=== PATIENT | female | born 1940 | race Caucasian/White ===

== ENCOUNTER → 2021-03-14 | Outpatient (CLI) | payer MEDICARE ==
[~2021-03-14] MED LIST: CALC1TAB30 PO; CLON0.1D3 TD; CYCLO25CA PO; MYCO250C PO; POTA1TAB14 PO; PRAV20TA2 PO; WARF-58 PO; [UNRECOGNIZED DRUG - OTHER]; [UNRECOGNIZED DRUG - OTHER]; [UNRECOGNIZED DRUG - OTHER]
--- NOTE | 2021-03-15 09:10 | RADONC.CN ---
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 She was offered catheter directed intervention at [facility] but has declined Y90 or like, in favor of EBRT. Diagnosis/Treatment History Oncologic History History of pulmonary carcinoid s/p LLL lobectomy in 2000. OHT @ [facility] 2000 on mycophenolate, cyclosporine, coumadin Cholangiocarcinoma Presented in September 2020 after a fall at home which prompted a RUQ US showing abnormality in the left liver. 12/25/20 CT abdomen pelvis showed an 8 cm mass in segment 2 01/24/21 MRI abdomen with 8.5 cm segment 2 mass, 2 cm segment 4 mass, and 1 cm elzbieta hepatis node 01/28/21 Biopsy consistent with cholangiocarcinoma [id number] stage IIIB 02/12/[address] Mackenzie @ [facility], options explained for management SIRT, TACE, chemo, observation, EBRT Interval History Here with her , reports that she has some band-like abdominal pain, and mild nausea without vomiting, which is almost daily. She has some reduced appetite, notes that she has some abdominal swelling. No confusion, no CP or SOB. She has no BRBPR, no bowel or urinary complaints. Past Medical History: DM OHT PE 2020 on coumadin Past Surgical History: PCI 01/28/21 Pelvic fractures 09/2020 Family History: Breast cancer sister Social History: Never smoker Never drinker Allergies / Meds Allergies: Coded Allergies: MS - No Known Drug Allergy (Verified Allergy, Unknown, 07/18/15) Home Meds Reported Medications Cyclosporine (Modified) (Neoral) 25 Mg Capsule, 25 MG PO BID for 30 Days, #180 CAP 03/14/21 Review of Systems Constitutional: Reports: Fatigue; Denies: Fever, Weight Loss Eyes: Denies: Pain HEENT: Denies: Head Aches Skin: Denies: Rash, Lesions, Jaundice Pulmonary: Denies: Dyspnea, Cough Cardiovascular: Denies: Chest Pain Gastrointestinal: Reports: Abdominal Pain; Denies: Nausea, Vomiting, Melena, Hematochezia Genitourinary: Denies: Hematuria Hematologic: Reports: Bruising, Petecchia Endocrine: Denies: Cold Intolerance Musculoskeletal: Denies: Neck pain, Back pain Neurological: Denies: Weakness, Numbness, Incoordination, Confusion Psych: Reports: Mood Normal Vital Signs Ht 58" Wt 134 lbs BMI 28 T 97 P 98 RR 18 BP 147/111 O2 100% Pain 0 Fatigue 2 General Exam: Alert, Cooperative, No Acute Distress Eye Exam: PERRLA, Conjunctiva & lids normal, EOMI; Negative: Sclera icteric ENT EXAM: Atraumatic, Mucous membr. moist/pink; Negative: Other ENT (No sublingual jaundice) Chest Exam: Clear to auscultation, Normal air movement Heart Exam: Rate Normal, Regular Rhythm Abdomen Exam: Normal bowel sounds, Soft, Tenderness (There is RUQ tenderness without guarding, liver edge palpable below the costal margin. No mass) Extremity Exam: Edema (Pedal edema ) Skin Exam: Nl turgor and temperature, Lesion (There are some scattered petec hiae on the wrists and dorsal hands BL. None on feet) Neuro Exam: Normal Gait, Normal Speech, Cranial Nerves 3-12 NL; Negative: Other (No asterixis) Psych Exam: Mental status NL Diagnostic and Laboratory Diagnostic Review Radiologic images, relevant labs and pathology reports were personally reviewed and discussed with Ms. Bowen. Assessment and Plan Impression Ms. 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 She was offered catheter directed intervention at [facility] but has declined Y90 or like, in favor of EBRT. Stage Intrahepatic bile duct (cholangiocarcinoma) [id number] stage IIIB Performance Status ECOG 1 Plan We had an extensive discussion with Ms. Bowen regarding the diagnosis at hand and available therapeutic options. She has declined any invasive management options at this time. I think this is reasonable. Y90 or like intervention can be held in reserve in case of pro gression after EBRT. No single modality (outside of resection or transplant, which she is not eligible for) has been shown superior for controlling intrahepatic tumors such as this. I reviewed her imaging with her which shows a multifocal tumor, which can be safely encompassed as a single isocenter treatment. Thankfully the bulk of the tumor is in the left hepatic lobe, which will make it easier to spare normal liver dose, as well as bowel dose. If feasible I will also include the suspicious elzbieta hepatis node in the field. For dose/fractionation, I favor 10 fractions of hypofractionated RT with stereotactic techniques. 50-60 Gy is my target dose. With a high gradient outside tumor this will spare normal tissue toxicity compared to standard SBRT liver doses, for tumor control the BED of the proposed regimen is similar to 10 Gy x 5. Depending on target geometry, we may use a hybrid of DCA and VMAT arcs for treatment. We discussed the logistics of receiving radiation therapy in detail including the need for a 1-time planning session. I will attempt expiration breath hold, but if this is not tolerated then we will perform a 4D limited CT and use an ITV approach. I will use her MRI to inform the target volumes, the lesions in question should be visible on the planning CT as well, as they are hypodense. If needed additional imaging can be obtained an fused. I will repeat her bloodwork today; CEA, CA19-9, CBC, CMP, PT/INR. In particular her CEA was elevated and could be followed after treatment. For imaging after treatment alternating MRI and CTs of the body could be obtained. For side effects we discussed the expectation she will experience nausea, possible diarrhea, fatigue, and late necrosis. After discussing the risks, benefits and alternatives to radiation therapy, Ms. Bowen was amenable to pursuing radiotherapy. All questions were answered to the patient's satisfaction. We instructed the patient that if there were any questions,concerns or changes in clinical status in the interim to contact us. Recommendations Hypofractionated RT 50-60 Gy in 10 fractions Simulation 4D v expiration breath hold Repeat labs today Billing Statement Total time of [50] minutes was spent preparing for the visit [4], obtaining HPI [10], examining the patient [4], reviewing diagnostic tests [7], discussing management options [15], coordinating care [2], and writing this note [8]. PAYAM COX MD Mar 15, 2021 09:10
== END ==
LOC: M ONCR 14:45
PROVIDERS: ATTEND General Practice
DX: C22.1 Intrahepatic bile duct carcinoma (principal); R10.9 Unspecified abdominal pain; R11.0 Nausea; Z79.01 Long term (current) use of anticoagulants; Z85.118 Personal history of other malignant neoplasm of bronchus and lung; Z92.25 Personal history of immunosuppression therapy; Z94.1 Heart transplant status

== ENCOUNTER 2021-04-26 11:05 | Outpatient (RCR) | payer MEDICARE ==
[~2021-04-26 11:05] MED LIST changes: +ONDA-83 PO
== END 2021-04-28 ==
LOC: M ONCR 11:05
PROVIDERS: ATTEND General Practice
DX: C22.1 Intrahepatic bile duct carcinoma (principal); R11.0 Nausea

== ENCOUNTER 2021-05-06 12:47 | Outpatient (RCR) | payer MEDICARE ==
[2021-06-05] MEDS ORDERED: DECA4TAB PO (14:01)
[2021-08-02] MEDS ORDERED: ONDA-83 PO (15:26)
== END 2021-05-28 ==
LOC: M ONCR 12:47
PROVIDERS: ATTEND General Practice
DX: C22.1 Intrahepatic bile duct carcinoma (principal); R53.83 Other fatigue

== ENCOUNTER → 2021-06-05 | Outpatient (CLI) | payer MEDICARE ==
[~2021-06-05] MED LIST changes: +DECA4TAB PO
--- NOTE | 2021-06-05 14:05 | RADENCPD ---
Date/Time of Encounter Date of Encounter: Jun 05, 2021 Time of Encounter: 14:01 Encounter Joseline came in today due to a history of nausea, abdominal bloating and early satiety for the past 2 weeks. Briefly, she completed RT to her large multifocal cholangiocarcinoma ~ 1 month ago. She is still eating and only has had vomiting once. She has been quite fatigued compared to her baseline as well. On exam she has no significant increase in abdominal girth, she has some mild RUQ and epigastric tenderness. She has no sublingual or conjunctival jaundice. She has no asterixis or swelling in her extremities. I explained that fatigue and some RUQ pain is typical of inflammation following RT to the liver. As she is eating without significant vomiting I encouraged her to take bland PO and ensure 4x daily, if able. Continue the zofran TID, can increase to 2 tabs TID if necessary, and I will prescribe a pulse of decadron 4 mg BID for 7 days. We will also get CMP, amylase, lipase, CBC today. I will call her back in weeks to assess her progress. She may call sooner if needed. PAYAM COX MD Jun 05, 2021 14:05
[2021-06-05 14:26] LABS: BASO % 0.6 % (0.0-1.0); EOS % 0.3 % (0.0-3.0); HEMOGLOBIN 11.4 g/dl (12.0-15.5); LYMPH # 0.5 10^3/uL (1.5-5.0); LYMPH % 16.3 % (24.0-44.0); MEAN CORPUSCULAR HEMOGLOBIN 32.4 pg (27.0-33.0); MEAN CORPUSCULAR HGB CONC 33.5 g/dl (32.0-36.5); MEAN CORPUSCULAR VOLUME 96.6 fl (80.0-96.0); MONO # 0.6 10^3/uL (0.0-0.8); MONO % 16.9 % (2.0-8.0); NEUTROPHILS # 2.2 10^3/uL (1.5-8.5); NEUTROPHILS % 65.6 % (36.0-66.0); PLATELET COUNT, AUTOMATED 143 10^3/uL (150-450); RED BLOOD COUNT 3.52 10^6/uL (4.00-5.40); WHITE BLOOD COUNT 3.3 10^3/uL (4.0-10.0)
[2021-06-05 14:37] LABS: INR 2.18; PROTHROMBIN TIME 24.7 SECONDS (12.7-14.5)
[2021-06-05 15:17] LABS: ALBUMIN 3.1 GM/DL (3.2-5.2); BILIRUBIN,TOTAL 0.7 MG/DL (0.2-1.0); CALCIUM LEVEL 8.6 MG/DL (8.8-10.2); CREATININE FOR GFR 1.1 MG/DL (0.55-1.30); GLOMERULAR FILTRATION RATE 50.6 (>32); POTASSIUM SERUM 4.8 MEQ/L (3.5-5.1); TOTAL PROTEIN 6.3 GM/DL (6.4-8.2)
== END ==
LOC: M ONCR 13:58
PROVIDERS: ATTEND General Practice
DX: C22.1 Intrahepatic bile duct carcinoma (principal)

== ENCOUNTER → 2021-06-05 | Outpatient (CLI) | payer MEDICARE | LOC: M ONCR 13:14 | PROVIDERS: ATTEND General Practice | DX: C22.1 Intrahepatic bile duct carcinoma (principal); R10.11 Right upper quadrant pain; R11.0 Nausea; Z92.3 Personal history of irradiation | CPT/HCPCS: 36415; 80053; 82150; 83690; 85025; 85610; G0463 ==

== ENCOUNTER → 2021-07-30 | Outpatient (CLI) | payer MEDICARE ==
[~2021-07-30] MED LIST changes: +PROHANCE 279.3MG/ML 15ML VIAL As Ordered ONE
== END ==
LOC: M RAD 10:21
PROVIDERS: ATTEND General Practice
DX: C22.1 Intrahepatic bile duct carcinoma (principal)
CPT/HCPCS: 74183; A9576